=== PATIENT | male | born 1970 | race Two or more races ===

== ENCOUNTER 2024-03-17 14:52 | Outpatient (AMB) | payer MEDICAID, SELFPAY ==
[2024-03-17 15:06] VITALS: BP 135/83; PULSE 95; RESP 18; TEMP 36.6; O2SAT 96; BMI 39.0
--- NOTE | 2024-03-17 15:06 | PD.GSCLVISIT ---
[facility] - [facility] 03/17/24 15:06 Height 1.57 m Height Method Stated Weight 96.247 kg Weight Measurement Method Standing Scale BMI 39.0 BP 135/83 H Blood Pressure Source Automatic Cuff Blood Pressure Location Right Upper Arm Position Sitting Respiration 18 Pulse 95 Pulse Source Monitor Temp 97.9 F Temp Source Temporal Artery Scan Pulse Oximetry (%) 96 Oxygen Delivery Method Room Air Med/Allergies Allergies & Medications Allergies No Known Drug Allergies Allergy (Verified 03/17/24 15:09) Medication Reconciliation No Known Home Medications 05/01/23 [History Confirmed 03/17/24] ID Intake Visit Data Collection New Patient or Established: Established Patient (seen at [facility] within 3 years) Reason for Visit:: COLONOSCOPY RESULTS Pain Present Currently: No Pain scale:: 0 Hvac Residential Service Technician Required: No PCP or OBGYN visit in last 3 months: Yes Hx Now: No Do You Feel Safe at Home: Yes Authorities Contacted: N/A Smoking Status Smoking Status: Light (< 1 pack/day) Cessation Counseling Provided: RADHA was advised that quitting smoking is the single most important factor to protect the health of themselves and their family. Discussed the benefits of quitting smoking with patient. Encouraged patient to quit smoking and provided Cessation assistance materials and resources. Tobacco Use: Cigarette Years smoked: 0 Are you interested in quitting?: No Immunization / Flu Flu Vaccine in the Last 12 Months: No Flu Vaccine Exclusion Criteria: No Exclusion Criteria Past Medical History Past Medical History NEUROLOGIC: Negative Neurological Disorders or Seizures CARDIAC: Positive Cardiac Disorders and Hypercholesterolemia; Negative Congestive Heart Failure RESPIRATORY: Negative Chronic Obstructive Pulmonary Disease (COPD) GASTROINTESTINAL: Positive Gastrointestinal Disorders (anal fissure), Hemorrhoids and Obesity GENITOURINARY: Positive Genitourinary Disorders (fatty liver); Negative Renal Disease ENDOCRINE: Negative Endocrine Disorders, Diabetes Mellitus Type 1 or Diabetes Mellitus Type 2 HEMATOLOGIC: Negative Blood Disorders or Anemia OTHER HISTORY: Negative Hospitalization, Autoimmune Disease, Shingles, Falls, Blood Transfusions, Anesthesia Reactions, Chicken Pox, Measles, Mumps or Cancer Family History FAMILY HISTORY: Positive Family Cancer and Family Surgery; Negative Family Psychiatric Problems, Family Respiratory Disorders, Family Cardiac Disorders, Family Gastrointestinal Problems or Family Anesthesia Reaction Social History SMOKING STATUS: Smoking status: Light (< 1 pack/day) ALCOHOL: Alcohol Intake: Current ALCOHOL FREQUENCY: Alcohol Intake Frequency: 0-2 Drinks per Day HOUSING: Housing: House LIVES WITH: Lives With: Family HPI HPI Narrative Spoke to patient with in person healthcare interpreter 53M here for follow-up for colonoscopy. Pt reports he feels well overall but states that he has had chronic perianal drainage and was advised in the past that he would need surgery. He also has noted a gluteal lesion he would like to have removed ROS Review of Systems Systems Reviewed: All systems reviewed, normal except as documented Objective/Exam General General Appearance: alert, cooperative and well groomed Resp Respiratory exam: Absent respiratory distress Rectal Rectal exam: Present other (left perianal external opening, no drainage. Normal AIRAM, no output from external opening when palpated) Results Colonoscopy report and path reviewed Assessment & Plan Diagnosis / Problem List (1) Encounter to discuss colonoscopy results: Status: Acute Assessment & Plan: As pt had only a hyperplastic polyp and he has no family history of CRC his next screening is due in 10 years (2) Perianal fistula: Status: Acute Assessment & Plan: I explained that perianal fistula surgery is generally done in two stages which tend to be months apart. I explained risks/benefits of procedure, pt expressed understanding and agrees to proceed Office Procedures GNS Level of Care Nursing/Assessment Patient Status: Established Patient Nursing Assessment/Reassesment: Medication Reconciliation, Update PMH in EMR and Vital Signs Coordination of Care: Complex Care and Chronic Disease 1-5, Education Complex Pt/Fam, Consent,records obtained, informed consent, Results/Orders obtained and Staff clarify orders Special Needs: Language special needs Established Patient Charge Established Patient Point Assignment: 95 Established Patient Point Charge: EP Level 3 (80-115) Patient Portal Questionaires Social History Living Situation History Housing: House Tobacco History Smoking Status: Light (< 1 pack/day) Alcohol History Alcohol Intake: Current Alcohol Intake Frequency: 0-2 Drinks per Day Domestic Abuse History Do You Feel Safe at Home: Yes Review of Systems Report any current symptoms Only answer those that you have currently: Past Medical History Past Medical History Have you ever been diagnosed with any of the following: Neurological Problems Seizures: No Cardiology Problems Hypercholesterolemia: Yes Congestive Heart Failure: No Respiratory Problems Chronic Obstructive Pulmonary Disease (COPD): No Stomache/Intestinal Problems Hemorrhoids: Yes Obesity: Yes Genital/Urinary Problems Renal Disease: No Endocrine Problems Diabetes Mellitus Type 1: No Diabetes Mellitus Type 2: No Blood Problems Anemia: No Other Problems Hospitalization: No Autoimmune Disease: No Shingles: No Falls: No Blood Transfusions: No Anesthesia Reactions: No Chicken Pox: No Measles: No Mumps: No Cancer: No
== END 2024-03-17 15:47 | disposition home or self-care (01) ==
LOC: HODSRG 14:52
PROVIDERS: PCP Surgery; Referring Provider Surgery; Supervising Provider Surgery; Visit Provider Surgery
DX: Z48.815 Encounter for surgical aftercare following surgery on the digestive system (principal); K60.30 Anal fistula, unspecified
CPT/HCPCS: 99213; G0463

== ENCOUNTER 2024-04-29 15:40 | Outpatient (AMB) | payer MEDICAID, SELFPAY ==
--- NOTE | 2024-04-29 15:47 | PD.GSCLVISIT ---
Vital Signs - [facility] 04/29/24 15:48 Height 1.57 m Height Method Stated Weight 95.765 kg Weight Measurement Method Standing Scale BMI 38.8 BP 145/84 H Blood Pressure Source Automatic Cuff Blood Pressure Location Left Upper Arm Position Sitting Respiration 18 Pulse 83 Pulse Source Monitor Temp 98.3 F Temp Source Temporal Artery Scan Pulse Oximetry (%) 96 Oxygen Delivery Method Room Air Med/Allergies Allergies & Medications Allergies No Known Drug Allergies Allergy (Verified 04/29/24 15:49) Medication Reconciliation No Known Home Medications 05/01/23 [History Confirmed 04/29/24] MA Intake Visit Data Collection New Patient or Established: Established Patient (seen at [facility] within 3 years) Seen by Clinical Staff ONLY (RN/MA): No Reason for Visit:: PRE OP Pain Present Currently: No Fruit Tester Required: Yes PCP or OBGYN visit in last 3 months: Yes Hx Now: No Do You Feel Safe at Home: Yes Authorities Contacted: N/A Smoking Status Smoking Status: Light (< 1 pack/day) Cessation Counseling Provided: RADHA was advised that quitting smoking is the single most important factor to protect the health of themselves and their family. Discussed the benefits of quitting smoking with patient. Encouraged patient to quit smoking and provided Cessation assistance materials and resources. Tobacco Use: Cigarette Years smoked: 1 Are you interested in quitting?: No Would you like additional Smoking Cessation Counseling?: No Immunization / Flu Flu Vaccine in the Last 12 Months: No Flu Vaccine Exclusion Criteria: Refused by Patient Past Medical History Past Medical History NEUROLOGIC: Negative Neurological Disorders or Seizures CARDIAC: Positive Cardiac Disorders and Hypercholesterolemia; Negative Congestive Heart Failure RESPIRATORY: Negative Chronic Obstructive Pulmonary Disease (COPD) GASTROINTESTINAL: Positive Gastrointestinal Disorders (anal fissure), Hemorrhoids and Obesity GENITOURINARY: Positive Genitourinary Disorders (fatty liver); Negative Renal Disease ENDOCRINE: Negative Endocrine Disorders, Diabetes Mellitus Type 1 or Diabetes Mellitus Type 2 HEMATOLOGIC: Negative Blood Disorders or Anemia OTHER HISTORY: Negative Hospitalization, Autoimmune Disease, Shingles, Falls, Blood Transfusions, Anesthesia Reactions, Chicken Pox, Measles, Mumps or Cancer Family History FAMILY HISTORY: Positive Family Cancer and Family Surgery; Negative Family Psychiatric Problems, Family Respiratory Disorders, Family Cardiac Disorders, Family Gastrointestinal Problems or Family Anesthesia Reaction Social History SMOKING STATUS: Smoking status: Light (< 1 pack/day) ALCOHOL: Alcohol Intake: Current ALCOHOL FREQUENCY: Alcohol Intake Frequency: 0-2 Drinks per Day HOUSING: Housing: House LIVES WITH: Lives With: Family HPI HPI Narrative Spoke to patient with in person rotating field assembler 53M here to discuss EUA with seton placement. He states he feels well overall but continues to have intermittent perianal drainage. He also reports occasional constipation and admits he drinks about 2 water bottles daily ROS Review of Systems Systems Reviewed: All systems reviewed, normal except as documented Objective/Exam General General Appearance: alert, cooperative and well groomed Resp Respiratory exam: Absent respiratory distress Assessment & Plan Diagnosis / Problem List (1) Perianal fistula: Status: Acute Assessment & Plan: 53M with chronic perianal fistula planned for surgery. I explained benefits/risks including pain, bleeding and persistence/recurrence of fistula. All questions were answered and pt is agreeable to proceeding Office Procedures GNS Level of Care Nursing/Assessment Patient Status: Established Patient Nursing Assessment/Reassesment: Medication Reconciliation, Update PMH in EMR and Vital Signs Coordination of Care: Complex Care and Chronic Disease 1-5, Consent,records obtained, informed consent, Education Simp Pt/Fam, Results/Orders obtained and Staff clarify orders Special Needs: Language special needs Established Patient Charge Established Patient Point Assignment: 90 Established Patient Point Charge: EP Level 3 (80-115) Patient Portal Questionaires Social History Living Situation History Housing: House Tobacco History Smoking Status: Light (< 1 pack/day) Alcohol History Alcohol Intake: Current Alcohol Intake Frequency: 0-2 Drinks per Day Domestic Abuse History Do You Feel Safe at Home: Yes Review of Systems Report any current symptoms Only answer those that you have currently: Past Medical History Past Medical History Have you ever been diagnosed with any of the following: Neurological Problems Seizures: No Cardiology Problems Hypercholesterolemia: Yes Congestive Heart Failure: No Respiratory Problems Chronic Obstructive Pulmonary Disease (COPD): No Stomache/Intestinal Problems Hemorrhoids: Yes Obesity: Yes Genital/Urinary Problems Renal Disease: No Endocrine Problems Diabetes Mellitus Type 1: No Diabetes Mellitus Type 2: No Blood Problems Anemia: No Other Problems Hospitalization: No Autoimmune Disease: No Shingles: No Falls: No Blood Transfusions: No Anesthesia Reactions: No Chicken Pox: No Measles: No Mumps: No Cancer: No
[2024-04-29 15:48] VITALS: BP 145/84; PULSE 83; RESP 18; TEMP 36.8; O2SAT 96; BMI 38.8
== END 2024-04-29 16:13 | disposition home or self-care (01) ==
LOC: HODSRG 15:40
PROVIDERS: Supervising Provider Surgery; Visit Provider Surgery
DX: K60.30 Anal fistula, unspecified (principal)
CPT/HCPCS: 99213; G0463

== ENCOUNTER 2024-05-05 06:40 | Day surgery (SDC) | payer MEDICAID, SELFPAY ==
[2024-05-04 06:57] VITALS: BMI 37.8
[2024-05-04 09:03] LABS: Basophils # (Auto) 0.1 Thou/mm3 (0.0-0.2); Basophils % (Auto) 1 % (0-2.5); Eosinophils # (Auto) 0.3 Thou/mm3 (0.0-0.5); Eosinophils % (Auto) 6 % (0-10); Hematocrit 45.1 % (41.0-53.0); Hemoglobin 15.5 g/dL (13.5-16.0); Immature Granulocytes % (Auto) 0 % (0-0); Immature Granulocytes Auto 0.01 Thou/mm3 (0.00-0.00); Lymphocytes # (Auto) 1.7 Thou/mm3 (1.0-4.8); Lymphocytes % (Auto) 32 % (10-50); Mean Corpuscular HGB Conc 34.4 g/dl (31.0-37.0); Mean Corpuscular Hemoglobin 32.2 pg (25.0-35.0); Mean Corpuscular Volume 94 fL (80-100); Monocytes # (Auto) 0.6 Thou/mm3 (0.0-0.8); Monocytes % (Auto) 11 % (0-12); Neutrophils # (Auto) 2.6 Thou/mm3 (1.8-7.7); Neutrophils % (Auto) 49 % (37-80); Nucleated Red Blood Cell % 0 /100 WBC (0); Platelet Count 155 Thou/mm3 (140-440); RDW Standard Deviation 41.1 fL (35.1-43.9); Red Blood Count 4.82 Miln/mm3 (4.50-5.90); White Blood Count 5.3 Thou/mm3 (3.8-10.6)
[2024-05-04 09:06] LABS: INR 1.1 (0.9-1.3); Partial Thromboplastin Time 27.6 Seconds (22.0-36.0); Prothrombin Time 11.7 Seconds (9.0-12.2)
[2024-05-04 09:32] LABS: Anion Gap 6 (7-16); BUN/Creatinine Ratio 11 Ratio (12-20); Blood Urea Nitrogen 11 mg/dL (9-23); Calcium 9.4 mg/dL (8.3-10.6); Carbon Dioxide 27.9 mMol/L (20.0-31.0); Chloride 103 mMol/L (98-107); Glucose 84 mg/dL (74-106); Osmolality,Calculated 272 (275-295); Potassium 4.5 mMol/L (3.4-5.1); Sodium 137 mMol/L (136-145); eGFR > 60 See Note
--- NOTE | 2024-05-04 14:37 | SUR.PREOP ---
Pt notified to come in at 0700 tomorrow for surgery.
[2024-05-05] VITALS (8 sets, daily range): BP systolic 96–134; BP diastolic 57–82; PULSE 66–76; RESP 15–20; TEMP 36.2–36.7; O2SAT 95–99; BMI 37.8
--- NOTE | 2024-05-05 07:25 | CHAP ---
Visited with patient and had prayer.
[2024-05-05] MEDS: RINGERS LACTATED 1000 ML 1,000 ML 20 ML IV (07:27)
--- NOTE | 2024-05-05 09:33 | SUR.PHASEI ---
0933: Pt. arrived with oral airway in place, vitals stable, breathing unlabored, no signs of distress, no dressing in place, no active bleed noted, report received from Shalonda POWELL and MD Sage
--- NOTE | 2024-05-05 09:44 | PD.SUROPNT ---
Date of Procedure 05/05/24 Pre Op Diagnosis Chronic perianal fistula Post Op Diagnosis Same Procedure Examination under anesthesia, curettage and cauterization of external anal fistula opening Findings No identifiable perianal fistula tract. Previous external opening of perianal fistula was excised and curettaged Procedure Description After discussion of risks and benefits, patient was brought to the operating room, SCDs were placed and general anesthesia was induced. He was placed in lithotomy position with proper padding and was prepped and draped in the usual sterile fashion. After timeout a AIRAM was performed which was normal aside from external hemorrhoids. The previous external opening to patient's chronic perianal fistula was visualized in the left mid perianal region, approximately 3 cm from the anal verge. This opening was probed but there was no clear tract into the anal canal. I had informed patient preoperatively that this was a possibility and if so that a seton would not be placed. I then excised the skin of the previous external perianal fistula opening with electrocautery and curettage the wound. I also cauterized the wound. A left pudendal nerve block was performed as well as a local block for a total of 20 cc of half percent Marcaine. The external fistula opening was covered with antibiotic ointment and patient was returned to supine position. He was extubated without complication and brought to PACU in stable condition Pathology / specimen Other (External perianal fistula opening) Estimated Blood Loss 10 Surgeon Erin Dean MD Surgical Staff Operation Date: 05/05/24 09:00 <No data on this case meets the specified criteria>
--- NOTE | 2024-05-05 09:48 | ESDS_ITS ---
Planned Discharge Date 05/05/24 DS: Providers Provider Primary care physician: ODILON Small Attending Provider on Admission: Erin Dean MD Attending Provider on DC: Erin Dean MD Discharging Provider: Erin Dean MD Diagnosis Discharge Diagnosis (1) Perianal fistula: Status: Acute Problem List Completed Was Problem List Reviewed/Reconciled?: Yes Hospital Course Brief History: Patient presented for examination under anesthesia. On exam there was no identifiable fistula tract. The external opening of patient's previous perianal fistula was excised and curettaged Exam Vital Signs Temp Pulse Resp BP Pulse Ox O2 Flow Rate 97.8 F 72 20 112/73 98 6 05/05/24 09:43 05/05/24 09:43 05/05/24 09:43 05/05/24 09:43 05/05/24 09:43 05/05/24 09:43 Discharge Plan Plan Patient Disposition: HOME (Self Care) Prescriptions/Referrals Prescriptions/Med Rec: New oxycodone-acetaminophen [Percocet] 5-325 mg tablet 1 tab PO Q6H MDD 6 tabs PRN (Reason: pain) Qty: 30 0RF docusate sodium [Colace] 100 mg capsule 100 mg PO QDAY PRN (Reason: constipation) Qty: 30 0RF Referrals: Lakshmi Muro FNP-C [Primary Care Provider] - Erin Dean MD [Physician] - (You will receive a phone call to confirm a follow-up appointment with me in 6 weeks) Patient/Caregiver Discharge Instructions Other Discharge Activity Instructions:: Avoid constipation and diarrhea You may take ibuprofen as needed in addition to Percocet for control of pain You may resume sitz baths as needed starting tomorrow 05/06 If you have difficulty urinating, fever or worsening pain please call the office if during business hours or seek care in ER Education Materials: Anesthesia: General Anesthesia, Surgery Anesthesia After, Preventing Surgical Site Infections, Taking a Sitz Bath, [facility] General Discharge- Macanese Print Language: Macanese Stand Alone Forms: Silvia Award Info., Patient Portal Info Letter Discharge Order Discharge Orders: Discharge (Routine); Ordered 05/05/24 Ordered By: Erin Dean Results Results: Laboratory Laboratory results: results reviewed Procedures Procedure Date 05/05/24 Procedures Examination under anesthesia, curettage and cauterization of external anal fistula opening
--- NOTE | 2024-05-05 10:30 | SUR.PHASEII ---
1030: Pt. AAOx4, vitals stable, breathing unlabored, no complaint of pain or nausea, no dressing in place, no active bleed noted, pt. tolerated sips of water well, pt. ambulated to wheelchair with steady gait and no assist, no complications. Gave discharge instructions to the pt. and his ride using lumber cutter Wojciech [email or web address], both verbalized understanding and had no further questions. Pt. left with all personal belongings.
== END 2024-05-05 10:30 | disposition home or self-care (01) ==
PROVIDERS: PCP Nurse Practitioner Family; Referring Provider Surgery; Visit Provider Surgery
PROC: (CPT 46940; principal; 2024-05-05 09:00)
DX: K60.30 Anal fistula, unspecified (principal)
CPT/HCPCS: 46940; 36415; 80048; 85025; 85610; 85730; A4217; A4649; J0690; J1100; J2250; J2405; J2704; J3010; J3490; J7120; A9270

== ENCOUNTER 2024-06-14 09:56 | Outpatient (AMB) | payer MEDICAID, SELFPAY ==
--- NOTE | 2024-06-14 10:11 | PD.GSCLVISIT ---
Vital Signs - [facility] 06/14/24 10:12 Height 1.6 m Height Method Stated Weight 98.231 kg Weight Measurement Method Standing Scale BMI 38.3 BP 134/85 H Blood Pressure Source Automatic Cuff Blood Pressure Location Left Upper Arm Position Sitting Respiration 18 Pulse 84 Pulse Source Monitor Temp 97.4 F Temp Source Temporal Artery Scan Pulse Oximetry (%) 95 Oxygen Delivery Method Room Air Med/Allergies Allergies & Medications Allergies No Known Drug Allergies Allergy (Verified 06/14/24 10:13) Medication Reconciliation docusate sodium 100 mg capsule (Colace) 100 mg PO QDAY PRN constipation #30 caps 05/05/24 [Rx Confirmed 06/14/24] oxycodone-acetaminophen 5 mg-325 mg tablet (Percocet) 1 tab PO Q6H PRN pain #30 tabs 05/05/24 [Rx Confirmed 06/14/24] MA Intake Visit Data Collection New Patient or Established: Established Patient (seen at [facility] within 3 years) Seen by Clinical Staff ONLY (RN/MA): No Reason for Visit:: FOLLOW UP Pain Present Currently: No 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 Discussed the benefits of quitting smoking with patient. Encouraged patient to quit smoking and provided Cessation assistance materials and resources. Tobacco Use: Cigarette Years smoked: 8 Are you interested in quitting?: No Immunization / Flu Flu Vaccine in the Last 12 Months: No Flu Vaccine Exclusion Criteria: Already Received Past Medical History Past Medical History NEUROLOGIC: Negative Neurological Disorders or Seizures CARDIAC: Positive Cardiac Disorders and Hypercholesterolemia (no meds); Negative Congestive Heart Failure RESPIRATORY: Negative Chronic Obstructive Pulmonary Disease (COPD) GASTROINTESTINAL: Positive Gastrointestinal Disorders, Hemorrhoids and Obesity; Negative Hepatitis GENITOURINARY: Negative Genitourinary Disorders or Renal Disease MUSCULOSKELETAL: Positive Arthritis ENDOCRINE: Negative Endocrine Disorders, Diabetes Mellitus Type 1 or Diabetes Mellitus Type 2 HEMATOLOGIC: Negative Blood Disorders or Anemia OTHER HISTORY: Negative Hospitalization, Autoimmune Disease, Shingles, Falls, Blood Transfusions, Anesthesia Reactions, Chicken Pox, Measles, Mumps or Cancer Family History FAMILY HISTORY: Positive Family Cardiac Disorders, Family Cancer and Family Surgery; Negative Family Psychiatric Problems, Family Respiratory Disorders, Family Gastrointestinal Problems or Family Anesthesia Reaction Social History SMOKING STATUS: Smoking status: Light (< 1 pack/day) ALCOHOL: Alcohol Intake: Current ALCOHOL FREQUENCY: Alcohol Intake Frequency: 0-2 Drinks per Day HOUSING: Housing: House LIVES WITH: Lives With: Family HPI HPI Narrative Spoke to pt with in-person language interpreter 53M who presented with a chronic perianal fistula s/p diagnostic colonoscopy followed by EUA with cauterization of fistula tract 05/05/24 here for planned follow up. Pt reports feeling well overall, he has minimal pain and minimal drainage, overall better compared to before surgery. He reports occasional constipation and states he drinks 2-3 bottles of water daily ROS Review of Systems Systems Reviewed: All systems reviewed, normal except as documented Objective/Exam General General Appearance: alert, cooperative and well groomed Resp Respiratory exam: Absent respiratory distress Assessment & Plan Diagnosis / Problem List (1) Perianal fistula: Status: Acute Assessment & Plan: 53M s/p EUA with cauterization of fistula tract 05/05/24 recovering well. I encouraged pt to increase water intake and to reach out with any concerns or questions Office Procedures GNS Level of Care Nursing/Assessment Patient Status: Established Patient Nursing Assessment/Reassesment: Medication Reconciliation, Update PMH in EMR and Vital Signs Coordination of Care: Complex Care and Chronic Disease 1-5, Consent,records obtained, informed consent, Education Simp Pt/Fam, Results/Orders obtained and Staff clarify orders Established Patient Charge Established Patient Point Assignment: 90 Established Patient Point Charge: EP Level 3 (80-115) Patient Portal Questionaires Social History Living Situation History Housing: House Tobacco History Smoking Status: Light (< 1 pack/day) Alcohol History Alcohol Intake: Current Alcohol Intake Frequency: 0-2 Drinks per Day Domestic Abuse History Do You Feel Safe at Home: Yes Review of Systems Report any current symptoms Only answer those that you have currently: Past Medical History Past Medical History Have you ever been diagnosed with any of the following: Neurological Problems Seizures: No Cardiology Problems Hypercholesterolemia: Yes (no meds) Congestive Heart Failure: No Respiratory Problems Chronic Obstructive Pulmonary Disease (COPD): No Stomache/Intestinal Problems Hepatitis: No Hemorrhoids: Yes Obesity: Yes Genital/Urinary Problems Renal Disease: No Musculoskeletal Problems Arthritis: Yes Endocrine Problems Diabetes Mellitus Type 1: No Diabetes Mellitus Type 2: No Blood Problems Anemia: No Other Problems Hospitalization: No Autoimmune Disease: No Shingles: No Falls: No Blood Transfusions: No Anesthesia Reactions: No Chicken Pox: No Measles: No Mumps: No Cancer: No
[2024-06-14 10:12] VITALS: BP 134/85; PULSE 84; RESP 18; TEMP 36.3; O2SAT 95; BMI 38.3
== END 2024-06-14 10:45 | disposition home or self-care (01) ==
LOC: HODSRG 09:56
PROVIDERS: PCP Nurse Practitioner Family; Referring Provider Nurse Practitioner Family; Supervising Provider Surgery; Visit Provider Surgery
DX: Z48.89 Encounter for other specified surgical aftercare (principal); K60.30 Anal fistula, unspecified
CPT/HCPCS: 99213; G0463